=== PATIENT | male | born 1940 | race Caucasian/White ===

== ENCOUNTER → 2017-08-25 | Outpatient (CLI) | payer BC ==
[~2017-08-25] MED LIST: CONTRAST GIVEN MC
[2017-08-25] MEDS: IOHEXOL 300 MG/ML 100ML VIAL. IV (08:25)
== END | disposition home or self-care (01) ==
LOC: CT 07:45
DX: H53.2 Diplopia (principal); H49.22 Sixth [abducent] nerve palsy, left eye
CPT/HCPCS: 70460; Q9967

== ENCOUNTER 2017-10-09 21:09 | Emergency (ER) | payer BC ==
[2017-10-09] MEDS: TETANUS AND DIPHTHERIA TOX/PF 0.5 ML DISP.SYRIN. VAX IM (21:41)
[2017-10-09] MEDS: HYDROcodone/APAP 5/325MG 1 TAB TABLET PO (22:28)
== END 2017-10-09 23:36 | disposition home or self-care (01) ==
LOC: ER 21:09
DX: S61.402A Unspecified open wound of left hand, initial encounter (principal); E78.00 Pure hypercholesterolemia, unspecified; K21.9 Gastro-esophageal reflux disease without esophagitis; I10 Essential (primary) hypertension; Z95.0 Presence of cardiac pacemaker; Z95.5 Presence of coronary angioplasty implant and graft; W34.09XA Accidental discharge from other specified firearms, initial encounter; Y93.89 Activity, other specified; Y99.8 Other external cause status; Y92.89 Other specified places as the place of occurrence of the external cause
CPT/HCPCS: 73130; 90471; 90714; 99284-25

== ENCOUNTER → 2020-05-22 | Emergency (ER) | payer BC ==
[~2020-05-22] MED LIST changes: +ASPI-482 PO; +CEPH-264 PO; -CONTRAST GIVEN MC; +HYDR-3164 PO; +LATA2.5D2 OP; +LISI10TA2 PO; +METO-239 PO; +MULT-245 PO; +OMEG1CAP6 PO; +OMEP40CA45 PO; +SERT50TA8 PO; +SIMV40TA18 PO; +TAMS0.4C2 PO
[2020-05-22 17:09] VITALS: BP 139/83
== END ==
LOC: ER 16:06
DX: M54.2 Cervicalgia (principal); Z53.21 Procedure and treatment not carried out due to patient leaving prior to being seen by health care provider